=== PATIENT | male | born 1955 | race Caucasian/White ===

== ENCOUNTER 2025-03-10 10:11 | Emergency (ER) | payer MEDICARE ==
[2025-03-10] MEDS ORDERED: Sodium Chloride 0.9% 2.5 ML Syringe FLUSH PRN (12:17)
[2025-03-10] MEDS ORDERED: Sodium Chloride 0.9% 10 ML Syringe FLUSH PRN (12:17)
[2025-03-10 13:18] LABS: APPEARANCE,URINE CLEAR; GLUCOSE,URINE >=1000 mg/dL (NEGATIVE); OCCULT BLOOD,URINE TRACE-INTACT (NEGATIVE)
[2025-03-10 13:22] LABS: BASOPHILS ABSOLUTE AUTO 0.02 K/uL (0.00-0.20); BASOPHILS PERCENT AUTO 0.2 % (0.0-1.0); EOSINOPHILS ABSOLUTE AUTO 0.04 K/uL (0.00-0.45); EOSINOPHILS PERCENT AUTO 0.5 % (0.0-6.0); IMMATURE GRAN ABSOLUTE AUTO 0.05 K/uL (0.00-0.05); IMMATURE GRAN PERCENT AUTO 0.6 % (0.0-0.4); LYMPHOCYTES ABSOLUTE AUTO 0.93 K/uL (1.00-4.80); LYMPHOCYTES PERCENT AUTO 11.6 % (24.0-44.0); MEAN PLATELET VOLUME 10.6 fL (9.4-12.4); MONOCYTES ABSOLUTE AUTO 0.52 K/uL (0.00-0.80); MONOCYTES PERCENT AUTO 6.5 % (0.0-8.0); NEUTROPHILS ABSOLUTE AUTO 6.46 K/uL (1.80-7.70); NEUTROPHILS PERCENT AUTO 80.6 % (41.0-71.0); NRBC ABSOLUTE 0.00 K/uL (0.00-0.02); NRBC PERCENT 0.0 /100WBC (0.0-0.2); PLATELET COUNT,PLT 138 K/uL (150-400); RED BLOOD CELL COUNT 4.53 M/uL (4.52-5.90); WHITE BLOOD CELL COUNT,WBC 8.02 K/uL (3.9-11.3)
[2025-03-10 13:29] LABS: EPITHELIAL CELLS,URINE RARE (NONE-FEW)
[2025-03-10 14:02] LABS: A/G RATIO 0.8 (0.9-1.6); ALANINE AMINOTRANSFERASE,ALT 74 IU/L (14-63); ASPARTATE AMNIOTRANSFERASE,AST 27 IU/L (15-37); BILIRUBIN TOTAL 1.5 mg/dL (0.2-1.0); BLOOD UREA NITROGEN,BUN 36 mg/dL (7.0-18.0); CARBON DIOXIDE,CO2 28.0 mmol/L (21.0-32.0); CHLORIDE,CL 92 mmol/L (98-107); CREATININE 2.2 mg/dL (0.8-1.3); EST CRCL DRUG DOSING (CG) 34.70 mL/min; POTASSIUM,K 4.1 mmol/L (3.5-5.1); PROTEIN TOTAL,TP 7.5 g/dL (6.4-8.2); SODIUM,NA 129 mmol/L (136-148)
[2025-03-10 14:05] LABS: ESTIMATED GFR 32 mL/min (>60); ETHANOL BLOOD MEDICAL < 3.0 mg/dL; GLUCOSE RANDOM 790 mg/dL (74-106)
== END 2025-03-10 14:13 | disposition left against medical advice (07) ==
LOC: MW.ED 10:11
DX: R41.0 Disorientation, unspecified (principal); E86.0 Dehydration; E11.9 Type 2 diabetes mellitus without complications; Z79.4 Long term (current) use of insulin; Z79.84 Long term (current) use of oral hypoglycemic drugs; Z79.899 Other long term (current) drug therapy
CPT/HCPCS: 36415; 70450; 70450-26; 80053; 80307; 81001; 82140; 83735; 84484; 85025; 87086; 99283; 99284

== ENCOUNTER 2025-03-12 07:14 | Emergency (ER) | payer MEDICARE ==
[2025-03-12 07:32] LABS: BASOPHILS ABSOLUTE AUTO 0.02 K/uL (0.00-0.20); BASOPHILS PERCENT AUTO 0.2 % (0.0-1.0); EOSINOPHILS ABSOLUTE AUTO 0.06 K/uL (0.00-0.45); EOSINOPHILS PERCENT AUTO 0.5 % (0.0-6.0); IMMATURE GRAN ABSOLUTE AUTO 0.05 K/uL (0.00-0.05); IMMATURE GRAN PERCENT AUTO 0.4 % (0.0-0.4); LYMPHOCYTES ABSOLUTE AUTO 0.86 K/uL (1.00-4.80); LYMPHOCYTES PERCENT AUTO 7.7 % (24.0-44.0); MEAN PLATELET VOLUME 10.6 fL (9.4-12.4); MONOCYTES ABSOLUTE AUTO 0.79 K/uL (0.00-0.80); MONOCYTES PERCENT AUTO 7.0 % (0.0-8.0); NEUTROPHILS ABSOLUTE AUTO 9.43 K/uL (1.80-7.70); NEUTROPHILS PERCENT AUTO 84.2 % (41.0-71.0); NRBC ABSOLUTE 0.00 K/uL (0.00-0.02); NRBC PERCENT 0.0 /100WBC (0.0-0.2); RED BLOOD CELL COUNT 4.43 M/uL (4.52-5.90); WHITE BLOOD CELL COUNT,WBC 11.21 K/uL (3.9-11.3)
[2025-03-12 07:36] LABS: BASE EXCESS VENOUS 3.3 (-2.0-3.0); BICARBONATE,VENOUS 27.0 mEq/L (22-29); PCO2 VENOUS 37.0 mmHG (41-51); PH,VENOUS 7.47 (7.32-7.43); PO2 VENOUS 35.0 mmHG (35-45)
[2025-03-12 07:41] LABS: PLATELET COUNT,PLT 128 K/uL (150-400)
[2025-03-12] MEDS: Lactated Ringers 1,000 ML IV ONE ×2 (07:41→09:01)
[2025-03-12 08:06] LABS: A/G RATIO 0.8 (0.9-1.6); ALANINE AMINOTRANSFERASE,ALT 66.0 IU/L (14-63); ASPARTATE AMNIOTRANSFERASE,AST 45.0 IU/L (15-37); BILIRUBIN TOTAL 2.6 mg/dL (0.2-1.0); BLOOD UREA NITROGEN,BUN 29.0 mg/dL (7.0-18.0); CARBON DIOXIDE,CO2 23.5 mmol/L (21.0-32.0); CHLORIDE,CL 96.0 mmol/L (98-107); CREATININE 2.0 mg/dL (0.8-1.3); EST CRCL DRUG DOSING (CG) 38.17 mL/min; POTASSIUM,K 4.7 mmol/L (3.5-5.1); PROTEIN TOTAL,TP 6.9 g/dL (6.4-8.2); SODIUM,NA 130.0 mmol/L (136-148)
[2025-03-12 08:09] LABS: ESTIMATED GFR 36.0 mL/min (>60); GLUCOSE RANDOM 573.0 mg/dL (74-106)
[2025-03-12 08:38] LABS: APPEARANCE,URINE CLEAR; GLUCOSE,URINE >=1000 mg/dL (NEGATIVE); OCCULT BLOOD,URINE SMALL (NEGATIVE)
[2025-03-12 08:45] LABS: EPITHELIAL CELLS,URINE RARE (NONE-FEW)
[2025-03-12] MEDS ORDERED: 50% Dextrose in Water 50 ML Syringe IVPUSH PRN ×3 (10:05→11:18)
[2025-03-12] MEDS: Insulin Regular, Human 100 Units/ML 10 ML Vial SUBCUT ONE ×2 (10:14→11:44)
== END 2025-03-12 13:22 | disposition home or self-care (01) ==
LOC: MW.ED 07:14
DX: E11.65 Type 2 diabetes mellitus with hyperglycemia (principal)
CPT/HCPCS: 36415; 71045; 80053; 81001; 82009; 82803; 82947; 85025; 96360; 96361; 99285; A9270; J1815; J7030; J7120; 99284

== ENCOUNTER 2025-03-12 20:29 | Inpatient (IN) | payer MEDICARE, BC ==
[2025-03-12 20:58] LABS: BASOPHILS ABSOLUTE AUTO 0.02 K/uL (0.00-0.20); BASOPHILS PERCENT AUTO 0.1 % (0.0-1.0); EOSINOPHILS ABSOLUTE AUTO 0.00 K/uL (0.00-0.45); EOSINOPHILS PERCENT AUTO 0.0 % (0.0-6.0); IMMATURE GRAN ABSOLUTE AUTO 0.07 K/uL (0.00-0.05); IMMATURE GRAN PERCENT AUTO 0.5 % (0.0-0.4); LYMPHOCYTES ABSOLUTE AUTO 0.51 K/uL (1.00-4.80); LYMPHOCYTES PERCENT AUTO 3.8 % (24.0-44.0); MEAN PLATELET VOLUME 10.8 fL (9.4-12.4); MONOCYTES ABSOLUTE AUTO 0.87 K/uL (0.00-0.80); MONOCYTES PERCENT AUTO 6.4 % (0.0-8.0); NEUTROPHILS ABSOLUTE AUTO 12.03 K/uL (1.80-7.70); NEUTROPHILS PERCENT AUTO 89.2 % (41.0-71.0); NRBC ABSOLUTE 0.00 K/uL (0.00-0.02); NRBC PERCENT 0.0 /100WBC (0.0-0.2); PLATELET COUNT,PLT 135 K/uL (150-400); RED BLOOD CELL COUNT 4.75 M/uL (4.52-5.90); WHITE BLOOD CELL COUNT,WBC 13.50 K/uL (3.9-11.3)
[2025-03-12 21:17] LABS: BLOOD UREA NITROGEN,BUN 26.0 mg/dL (7.0-18.0); CARBON DIOXIDE,CO2 22.7 mmol/L (21.0-32.0); CHLORIDE,CL 99.0 mmol/L (98-107); CREATININE 2.2 mg/dL (0.8-1.3); EST CRCL DRUG DOSING (CG) 34.7 mL/min; GLUCOSE RANDOM 357.0 mg/dL (74-106); POTASSIUM,K 4.1 mmol/L (3.5-5.1); SODIUM,NA 135.0 mmol/L (136-148)
[2025-03-12 21:19] LABS: ESTIMATED GFR 32.0 mL/min (>60)
[2025-03-12 21:25] LABS: LACTIC ACID 3.3 mmol/L (0.4-2.0)
[2025-03-12] MEDS: cefTRIAXone 2 GM in Water For Injection, Sterile 20 ML IVPUSH ONE (21:49)
[2025-03-12] MEDS: Lactated Ringers 1,000 ML IV ONE (21:54)
[2025-03-12] MEDS: VANCOmycin 2 GM/400 ML 2 GM in Premix Bag 1 BAG IV ONE (22:19)
[2025-03-12] MEDS: VANCOmycin 2 GM/400 ML 400 ML ONE (22:37)
[2025-03-13] MEDS: Iopamidol 755 MG/ML 500 ML Multipack Bottle IVPUSH STA (01:04)
[2025-03-13] MEDS ORDERED: 50% Dextrose in Water 50 ML Syringe IVPUSH PRN ×2 (02:55→09:54)
[2025-03-13 06:33] LABS: BASOPHILS ABSOLUTE AUTO 0.01 K/uL (0.00-0.20); BASOPHILS PERCENT AUTO 0.1 % (0.0-1.0); EOSINOPHILS ABSOLUTE AUTO 0.00 K/uL (0.00-0.45); EOSINOPHILS PERCENT AUTO 0.0 % (0.0-6.0); IMMATURE GRAN ABSOLUTE AUTO 0.03 K/uL (0.00-0.05); IMMATURE GRAN PERCENT AUTO 0.3 % (0.0-0.4); LYMPHOCYTES ABSOLUTE AUTO 0.80 K/uL (1.00-4.80); LYMPHOCYTES PERCENT AUTO 8.5 % (24.0-44.0); MEAN PLATELET VOLUME 11.1 fL (9.4-12.4); MONOCYTES ABSOLUTE AUTO 0.64 K/uL (0.00-0.80); MONOCYTES PERCENT AUTO 6.8 % (0.0-8.0); NEUTROPHILS ABSOLUTE AUTO 7.95 K/uL (1.80-7.70); NEUTROPHILS PERCENT AUTO 84.3 % (41.0-71.0); NRBC ABSOLUTE 0.00 K/uL (0.00-0.02); NRBC PERCENT 0.0 /100WBC (0.0-0.2); PLATELET COUNT,PLT 107 K/uL (150-400); RED BLOOD CELL COUNT 4.14 M/uL (4.52-5.90); WHITE BLOOD CELL COUNT,WBC 9.43 K/uL (3.9-11.3)
[2025-03-13 06:49] LABS: BLOOD UREA NITROGEN,BUN 27.0 mg/dL (7.0-18.0); CARBON DIOXIDE,CO2 21.3 mmol/L (21.0-32.0); CHLORIDE,CL 102.0 mmol/L (98-107); CREATININE 1.7 mg/dL (0.8-1.3); EST CRCL DRUG DOSING (CG) 39.42 mL/min; GLUCOSE RANDOM 309.0 mg/dL (74-106); POTASSIUM,K 3.8 mmol/L (3.5-5.1); SODIUM,NA 136.0 mmol/L (136-148)
[2025-03-13 06:52] LABS: ESTIMATED GFR 44.0 mL/min (>60)
[2025-03-13 08:58] LABS: A/G RATIO 0.7 (0.9-1.6); ALANINE AMINOTRANSFERASE,ALT 51.0 IU/L (14-63); ASPARTATE AMNIOTRANSFERASE,AST 42.0 IU/L (15-37); BILIRUBIN DIRECT 0.5 mg/dL (0.0-0.5); BILIRUBIN INDIRECT 2.1; BILIRUBIN TOTAL 2.6 mg/dL (0.2-1.0); PROTEIN TOTAL,TP 6.0 g/dL (6.4-8.2)
[2025-03-13] MEDS: cefTRIAXone 1 GM in Water For Injection, Sterile 10 ML IVPUSH SCH (10:03)
[2025-03-13] MEDS: [UNRECOGNIZED DRUG - OTHER] PO SCH (10:24)
[2025-03-13] MEDS: Insulin Glargine,Human Rec. Analog 100 Units/ML 3 ML Pen SUBCUT STA (10:29)
[2025-03-13] MEDS: Heparin Sodium 5,000 Units/ML Vial SUBCUT SCH (11:01)
[2025-03-13 11:39] LABS: TSH ULTRASENSITIVE 0.4 uIU/mL (0.36-3.74)
[2025-03-13] MEDS: Gadoteridol 279.3 MG/ML 20 ML SDV IVPUSH ONE (12:57)
[2025-03-13 16:32] LABS: APPEARANCE,URINE CLEAR; GLUCOSE,URINE >=1000 mg/dL (NEGATIVE); OCCULT BLOOD,URINE MODERATE (NEGATIVE)
[2025-03-13 16:42] LABS: AMPHETAMINES SCREEN, URINE NEGATIVE (CUTOFF=500); BUPRENORPHINE SCREEN,URINE NEGATIVE (CUTOFF=10); METHADONE SCREEN, URINE NEGATIVE (CUTOFF=200); METHAMPHETAMINES SCREEN, URINE NEGATIVE (CUTOFF=500); OXYCODONE SCREEN,URINE NEGATIVE (CUT0FF=100); PCP SCREEN,URINE NEGATIVE (CUTOFF=25); THC SCREEN,URINE 20 NG/ML NEGATIVE (CUTOFF=50)
[2025-03-13 16:47] LABS: EPITHELIAL CELLS,URINE NOT SEEN (NONE-FEW)
[2025-03-13] MEDS ORDERED: cefTRIAXone 1 GM in Water For Injection, Sterile 10 ML IVPUSH SCH (21:00)
[2025-03-14] MEDS ORDERED: Venlafaxine 75 MG Cap.ER PO SCH (09:00)
[2025-03-19 05:07] LABS: HIV-1 QNT BY NAAT (COPIES/ML) 38 cpy/mL; HIV-1 QNT BY NAAT INTERP Detected (Not Detected); HIV-1 QNT NAAT LOG COPIES/ML 1.58 log cpy/mL
[2025-03-20 14:07] LABS: CD4 % 27 % (35-68); CD4 ABSOLUTE 203 cells/uL
== END 2025-03-13 18:53 | DRG 603 ==
LOC: EDBD 20:29 → MW.ED 20:29 → MW.MS 21:44 → MERGE 21:44
PROVIDERS: ADMIT Internal Medicine; ATTEND Internal Medicine
DX: L03.115 Cellulitis of right lower limb (principal); R78.81 Bacteremia; Z79.84 Long term (current) use of oral hypoglycemic drugs; Z79.899 Other long term (current) drug therapy; Z21 Asymptomatic human immunodeficiency virus [HIV] infection status; N40.0 Benign prostatic hyperplasia without lower urinary tract symptoms; Z90.49 Acquired absence of other specified parts of digestive tract; D69.6 Thrombocytopenia, unspecified; B96.89 Other specified bacterial agents as the cause of diseases classified elsewhere
CPT/HCPCS: 36415; 70553; 70553-26; 73701-26-RT; 73701-RT; 80048; 80076; 80202; 80305; 80307; 81001; 82306; 82607; 82947; 83036; 83605; 84443; 85025; 86140; 86361; 87040; 87077; 87186; 87536; 93970; 93970-26; 93971-26-RT; 93971-RT; 99223; 99285; A4216; A9270-GY; A9579; J0133; J0696; J1644; J1815-GY; J2543; J3375; J7030; J7050; J7120; Q9967